=== PATIENT | male | born 1960 | race Caucasian/White ===

== ENCOUNTER 2021-05-22 17:17 | Emergency (ER) | payer BC ==
[~2021-05-22] VITALS: Ht 175.3 cm; Wt 87.5 kg
[~2021-05-22 17:17] MED LIST: ASPIR 8181 MG PO; HYDROCHLOROTHIA25 MG PO; HYDROCODON-ACE1 EA12 PO; JANUVIA50 MG PO; LISINOPRIL40 MG PO; MELOXICAM7.5 MG PO; METFORMIN HCL1000 MG PO; PRAVASTATIN SOD20 MG PO
[2021-05-22] MEDS ORDERED: MORPHINE SULFATE INJ 4 MG/ML INJ 1ML ONE (17:58)
[2021-05-22] MEDS ORDERED: ONDANSETRON HCL INJ 2MG/ML 2ML 2 MG/ML VIAL ONE (17:59)
[2021-05-22] MEDS ORDERED: MORPHINE SULFATE INJ 2 MG/ML SYR ONE (17:59)
[2021-05-22] MEDS ORDERED: SODIUM CHLORIDE 0.9% 50ML 50 ML ONE (18:02)
[2021-05-22] MEDS ORDERED: IOPAMIDOL 370 MG/ML 200 ML INFUS..BTL INJ ONE (18:02)
[2021-05-22 18:30] LABS: ALANINE AMINOTRANSFERASE 15 IU/L (0-55); ALBUMIN 4.6 g/dL (3.5-5.0); ALBUMIN/GLOBULIN RATIO 1.5 (0.8-2.0); ALKALINE PHOSPHATASE 31 IU/L (40-150); ANION GAP 19.1 mmol/L (8-16); BLOOD UREA NITROGEN 31 mg/dL (7-26); BUN/CREATININE RATIO 21 (6-25); CALCIUM 9.9 mg/dL (8.4-10.2); CARBON DIOXIDE 24 mmol/L (22-29); CHLORIDE 97 mmol/L (98-107); CREATINE KINASE 41 IU/L (30-200); CREATININE, SERUM 1.51 mg/dL (0.72-1.25); EST GLOMERULAR FILTRATION RATE 47 ML/MIN (60-); GLUCOSE 147 mg/dL (74-118); POTASSIUM 4.1 mmol/L (3.5-5.1); SODIUM 136 mmol/L (136-145)
[2021-05-22] MEDS ORDERED: SODIUM CHLORIDE 0.9% IV ONE (18:30)
[2021-05-22] MEDS ORDERED: SODIUM CHLORIDE 0.9% 1000ML 2,000 ML IV SCH (18:30)
[2021-05-22] MEDS ORDERED: PIPERACILLIN/TAZOBACTAM 3.375 GM in SODIUM CHLORIDE 0.9% 50ML 50 ML IV ONE (18:30)
[2021-05-22 18:54] LABS: AMPHETAMINES SCREEN,URINE NEGATIVE (NEGATIVE); BENZODIAZEPINES SCREEN,URINE NEGATIVE (NEGATIVE); CLARITY,URINE CLEAR (CLEAR); COLOR,URINE YELLOW (YELLOW); KETONES,URINE NEGATIVE (NEGATIVE); LEUKOCYTE ESTERASE ,URINE NEGATIVE (NEGATIVE); NITRITE,URINE NEGATIVE (NEGATIVE); PHENCYCLIDINE SCREEN,URINE NEGATIVE (NEGATIVE); PROTEIN,URINE DIPSTICK NEGATIVE (NEGATIVE)
[2021-05-22 18:55] LABS: URINE UROBILINOGEN 0.2 mg/dL (0.2 - 1)
[2021-05-22 19:08] LABS: EPITHELIAL CELLS,URINE RARE /LPF; MUCUS,URINE FEW (RARE); RBC,URINE 0-5 /HPF (0-5); WBC,URINE (MAN) 0-5 /HPF (0-5)
[2021-05-22 21:56] LABS: BASOPHILS # (AUTO) 0.1 (0.0-0.1); BASOPHILS % 0.5 % (0.0-1.0); EOSINOPHILS # (AUTO) 0.1 (0.0-0.4); EOSINOPHILS % 0.5 % (0.0-6.0); HEMATOCRIT 43.9 % (38.2-49.6); HEMOGLOBIN 14.2 g/dL (14.0-18.0); LYMPHOCYTES # (AUTO) 1.5 (1.0-3.2); LYMPHOCYTES % 8.5 % (18.0-39.1); MEAN CORPUSCULAR HEMOGLOBIN 28.8 pg (28-32); MEAN CORPUSCULAR HGB CONC 32.3 g/dL (31-35); MONOCYTES # (AUTO) 0.7 (0.2-0.8); MONOCYTES % 4.2 % (4.4-11.3); NEUTROPHILS # (AUTO) 14.9 (2.1-6.9); NEUTROPHILS % 85.7 % (38.7-80.0); PLATELET COUNT 371 x10e3/uL (140-360); RED BLOOD COUNT 4.93 x10e6/uL (4.3-5.7); RED CELL DISTRIBUTION WIDTH 13.7 % (11.7-14.4)
[2021-05-22] MEDS ORDERED: LACTULOSE SYRUP 20 GM/30 ML UDC PO ONE (23:30)
[2021-05-22 23:44] LABS: ANION GAP 13.8 mmol/L (8-16); CALCIUM 8.3 mg/dL (8.4-10.2); CREATININE, SERUM 1.19 mg/dL (0.72-1.25); POTASSIUM 3.8 mmol/L (3.5-5.1)
[2021-05-23 05:57] VITALS: BP 137/83
== END 2021-05-23 06:01 | disposition home or self-care (01) ==
LOC: ER 17:55
DX: R10.9 Unspecified abdominal pain (principal); K59.00 Constipation, unspecified; E78.5 Hyperlipidemia, unspecified; M54.9 Dorsalgia, unspecified; G89.29 Other chronic pain
CPT/HCPCS: 36415; 51700; 74177; 80048; 80053; 80307; 81001; 82550; 82553; 83605; 83690; 84484; 85025; 87040; 99283; J2270 ×2; J2405; J2543; J7030; Q9967